=== PATIENT | female | born 1980 | race Caucasian/White ===

== ENCOUNTER → 2016-07-03 | Outpatient (CLI) | payer BC ==
[~2016-07-03] MED LIST: COLACE-DPS100 MG PO; IRON325 M1 PO; MOTRIN-DPS800 MG PO; NIPPLECREAM TP; PRENATAL VIT1 TAB PO
== END | disposition home or self-care (01) ==
LOC: RAD.S 13:48
DX: O09.513 Supervision of elderly primigravida, third trimester (principal); Z3A.37 37 weeks gestation of pregnancy

== ENCOUNTER 2016-08-06 18:10 | Inpatient (IN) | payer BC ==
--- NOTE | ~2016-08-06 | FD ---
ADMIT: 08/06/2016 RM/LOC: 227 [facility] MR#: [id number] [address] [address] LAMIN GROVES [address] [place], [place] [address] Final Diagnosis SEX: F AGE: 35 : 1980 ADMISSION DATE: 08/06/2016 DISCHARGE DATE: 08/09/2016 FINAL DIAGNOSIS: 1. A 35-year-old 5 para 5-0-0-5, status post spontaneous vaginal delivery at 40 weeks 4 days. 2. Obesity. 3. Grand multiparity. PROCEDURE: Spontaneous vaginal delivery. Michelle Lopez MD Resident / Joel Caicedo MD / simone JOB #: [id number] CC: Joel Caicedo MD, Attending Physician Joel Caicedo MD, Family Physician
--- NOTE | 2016-08-08 17:21 | HP ---
ADMIT: 08/06/2016 RM/LOC: 227 [facility] MR#: [id number] [address] [address] LAMIN GROVES [address] [place], [place] [id number] History and Physical SEX: F AGE: 35 : 1980 DATE OF SERVICE: CHIEF COMPLAINT: Induction of labor. HISTORY OF PRESENT ILLNESS: This is a 35-year-old, G5, P4-0-0-4 with intrauterine at 40 weeks, 4 days via 1st trimester ultrasound, who presents for induction of labor. She denies regular contractions. She reports normal movement. No leaking of fluid or vaginal bleeding. has been complicated by morbid obesity, grand multiparity, failed 1- hour glucose tolerance test and passed 3-hour glucose tolerance test. PAST MEDICAL HISTORY: Obesity, history of thyroid disease, asthma. PAST SURGICAL HISTORY: Denies surgical history. MEDICATIONS: vitamin. ALLERGIES: NO KNOWN MEDICAL ALLERGIES. SOCIAL HISTORY: She is . Denies alcohol use, drug use, or recreational substances. No tobacco. FAMILY HISTORY: Her father has diabetes. She also has a niece with autism and a sibling has a child with paralyzed lower extremities. The patient is unsure which condition is actually present. REVIEW OF SYSTEMS: She denies headache, changes of vision, chest pain, or shortness of breath. No nausea, vomiting, diarrhea, or constipation. She does endorse swelling in bilateral lower extremities. PHYSICAL EXAM: VITAL SIGNS: Blood pressure 119/71, pulse 89, respiratory rate 18, temperature is 98.4, and she is saturating 95% on room air. GENERAL: She is alert and oriented and in no acute distress. HEART: Regular rate and rhythm. LUNGS: Clear to auscultation bilaterally. ABDOMEN: Gravid with estimated weight of 4600 g. EXTREMITIES: She has 1+ edema in bilateral lower extremities. : Sterile vaginal exam, 3.5, 40, and -3. Vertex confirmed with ultrasound. heart tones baseline 125, moderate variability, positive accelerations, no decelerations. Category 1 strip. Tocometer every 6 minutes and irregular. LABS: Blood type O positive. Direct antibody screen negative. GBS negative. 1-hour glucose tolerance test was 142, 3-hour values of 89, 134, 126, and 117. Rubella immune. Syphilis negative. Hepatitis B negative. Gonorrhea and chlamydia negative. HIV negative. Hemoglobin 11.3 upon admission. ADMIT: 08/06/2016 RM/LOC: 227 [facility] MR#: [id number] [address] [address] LAMIN GROVES [address] [place] [address] History and Physical SEX: F AGE: 35 : 1980 ASSESSMENT AND PLAN: This is a 35-year-old, 5 para 4-0-0-4 with intrauterine at 40 weeks 4 days via first trimester ultrasound, who presents for induction of labor. 1. Cervix favorable with Mei score of 6. Plan for Pitocin induction plus or minus artificial rupture of membranes. Consents were obtained for vaginal delivery, assistive vaginal delivery, and section. Blood type is O positive. No RhoGAM indicated. 2. Morbid obesity with concern for large for gestational age infant. 3. Group B streptococcus negative. No antibiotic prophylaxis indicated at this time. 4. heart tones category 1. Continue to monitor throughout the labor process. 5. Maternal well being. Denies pain at this time. No plan for epidural. We will reassess pain control throughout the labor process. Patient was seen and discussed with staff physician, Dr. Joel Caicedo on day of admission. Michelle Lopez MD Resident / Joel Caicedo MD / darwin JOB #: [id number] CC: Joel Caicedo, Attending Physician Joel Caicedo, Family Physician
[2016-08-10] MEDS ORDERED: PRENATAL VIT1 TAB PO (16:47)
[2016-08-10] MEDS ORDERED: IRON325 M1 PO (16:47)
[2016-08-10] MEDS ORDERED: NIPPLECREAM TP (16:48)
[2016-08-10] MEDS ORDERED: COLACE-DPS100 MG PO (16:48)
[2016-08-10] MEDS ORDERED: MOTRIN-DPS800 MG PO (16:48)
--- NOTE | 2016-08-13 12:53 | OR ---
ADMIT: 08/06/2016 RM/LOC: 227 [facility] MR#: [id number] [facility]#: [id number] [address] [address] LAMIN GROVES [address] [place] [address] Operative/Delivery Room Report SEX: F AGE: 35 : 1980 Corrected: 08/08/2016 0602 njv SURGERY DATE: 08/07/2016 SURGEON: Joel Caicedo MD PROCEDURE: Spontaneous vaginal delivery. [employer]ER: Michelle Lopez MD, Resident. PREPROCEDURE DIAGNOSES: 1. A 35-year-old, G5, P4-0-0-4 with intrauterine at 40 weeks 4 days via ultrasound. 2. Morbid obesity. 3. Failed 1-hour glucose tolerance test, passed 3-hour glucose tolerance test. 4. Grand multiparity. POSTPROCEDURE DIAGNOSES: 1. A 35-year-old, G5, P5-0-0-5, status post spontaneous vaginal delivery at 40 weeks 4 days. 2. Perineal superficial abrasion. 3. Morbid obesity. 4. Grand multiparity. DELIVERY INFORMATION: Delivery date was 08/07/2016. Time of delivery was 1622 hours. Viable male with a weight of 5090 g and scores of 6 and 8. DELIVERY TYPE: Spontaneous vaginal delivery. Moderate meconium was present. ESTIMATED BLOOD LOSS: 250 mL. ANESTHESIA: None. COMPLICATIONS: No known complications, the patient tolerated the procedure well. HOSPITAL COURSE AND PROCEDURE: This is a 35-year-old, G5, P4-0-0-4 with intrauterine at 40 weeks 4 days, who [facility]. The patient was admitted and cervix was found to be favorable. She was started on Pitocin for induction. AROM was performed. The patient progressed to complete without further augmentation. The patient was placed in the dorsal lithotomy position and prepped and draped in a sterile fashion. Expulsive efforts were begun. The 's head was brought to the perineum and delivered over an intact perineum. The head restituted to the right. A loose nuchal body cord was present and was not reduced until following the delivery of the body. The anterior and posterior shoulder delivered without difficulties. The body followed. The body cord was ADMIT: 08/06/2016 RM/LOC: 227 [facility] MR#: [id number] [address] [address] LAMIN GROVES [address] [place] [address] Operative/Delivery Room Report SEX: F AGE: 35 : 1980 reduced at that time. The was placed on the maternal abdomen and stimulated. Weak respiratory effort was initially present. The 's cord was clamped and cut and the was handed to the resuscitative team. The infant did require CPAP for 3 minutes as well as vigorous stimulation and oral suction. Infant was found to be 5090 g. scores were 6 and 8. Following the cord being clamped and cut, cord blood was collected. Cord gas was not collected. The placenta delivered spontaneously with a 3-vessel cord. Placenta found to be intact. The vagina, perineum, and cervix were inspected for lacerations. The patient was noted to have a very superficial perineal abrasion which was hemostatic without repair. No other lacerations were found. All tissues were found to be hemostatic. Counts were correct x2. The infant and mother were stable in the mother's room at the time of completion of the procedure. Dr. Joel Caicedo was present for the entire procedure. Michelle Lopez MD Resident / Joel Caicedo MD / modl JOB #: [id number] CC: Joel Caicedo, Attending Physician Joel Caicedo, Family Physician Corrected: 08/08/2016 0602 phyllis
== END 2016-08-09 09:29 | disposition home or self-care (01) | DRG 775 ==
LOC: BC 18:10 → 2LDRP 18:10
PROVIDERS: ADMIT Family Medicine
PROC: 3E033VJ Introduction of Other Hormone into Peripheral Vein, Percutaneous Approach (ICD-10-PCS; principal; 2016-08-07)
PROC: 10E0XZZ Delivery of Products of Conception, External Approach (ICD-10-PCS; principal; 2016-08-07)
PROC: 10907ZC Drainage of Amniotic Fluid, Therapeutic from Products of Conception, Via Natural or Artificial Opening (ICD-10-PCS; principal; 2016-08-07)
DX: O48.0 Post-term pregnancy (principal); Z68.41 Body mass index [BMI] 40.0-44.9, adult; O69.81X0 Labor and delivery complicated by cord around neck, without compression, not applicable or unspecified; O99.214 Obesity complicating childbirth; E66.01 Morbid (severe) obesity due to excess calories; Z3A.40 40 weeks gestation of pregnancy; Z37.0 Single live birth